=== PATIENT | female | born 1930 | race Caucasian/White ===

== ENCOUNTER 2016-08-24 08:06 | Observation (INO) ==
--- NOTE | 2016-08-24 08:49 | Emergency Department Note ---
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 Discovered after workup for multiple falls, gait instability, personality change, lack of insight. Power of box machine operator had accompanied her last night, had arranged for extensive home care 's after visit with case management. Patient returns, 3 additional falls overnight. No injury but unable to ambulate safely. Continued confusion, unable to complete simple tasks including ADLs. Accompanied by grandson who stayed with her all night. Daughter RN, apparently now involved. Referral to [facility] pending. - Related Data Home Medications Medication Instructions Recorded Confirmed Levothyroxine [Synthroid] 50 mcg PO DAILY 06/17/15 08/24/16 Omeprazole [PriLOSEC] 20 mg PO DAILY 06/17/15 08/24/16 Allergies Allergy/AdvReac Type Severity Reaction Status Date / Time No Known Drug Allergies Allergy Verified 08/24/16 08:12 Review of Systems All systems ED: reviewed and negative except as stated. Constitutional: Reports: weakness. Denies: fever, chills Cardiovascular: Denies: dyspnea on exertion, syncope Respiratory: Denies: cough, dyspnea Neurological: Reports: weakness, abnormal gait. Denies: headache Past Medical History - Past Medical History Attestation: Yes: The following information was validated with the patient. Medical history: Reports: cancer (new primary brain tumor identified August 2016), GERD, thyroid disease, other (upper GI bleed in the past) Surgical history ED: Reports: appendectomy, hysterectomy, knee replacement Family history: Reports: non-contributory - Social History smoking status: Never smoker Physical Exam - General Limitations: no limitations General appearance: alert, other (confabulating, jorge poor insight) - Head Head exam: atraumatic - Eye Eye exam: Present: normal appearance - ENT ENT exam: normal exam - Neck Neck exam: Present: normal inspection. Absent: lymphadenopathy - Chest Chest inspection: Present: normal inspection - Respiratory Respiratory exam: Present: normal lung sounds bilaterally. Absent: respiratory distress - Cardiovascular Cardiovascular exam: Present: regular rate, normal rhythm - Abdominal Exam Abdominal exam: Present: soft. Absent: tenderness - Extremities Exam Extremities exam: Present: normal inspection - Back Exam Back exam: Present: normal inspection - Neurological Exam Neurological exam: Present: alert, other (oriented to person and place; details and history lacking) - Psychiatric Psychiatric exam: Present: normal affect - Skin Skin exam: Present: warm, intact Course - Reevaluation(s) Reevaluation #1: laboratory not repeated; discussed with hospitalist,willing for admission Time: 08:54 Vital Signs Temperature 99.5 F 08/24/16 08:07 Pulse Rate 64 08/24/16 08:07 Respiratory Rate 16 08/24/16 08:07 Blood Pressure 132/73 08/24/16 08:07 Pulse Oximetry (%) 97 08/24/16 08:07 Temperature 99.5 F 08/24/16 08:07 Pulse Rate 64 08/24/16 08:07 Respiratory Rate 16 08/24/16 08:07 Blood Pressure 132/73 08/24/16 08:07 Pulse Oximetry (%) 97 08/24/16 08:07 Disposition Clinical Impression: Brain tumor, Gait instability Altered mental status Qualifiers: Altered mental status type: disorientation Qualified Code(s): R41.0 - Disorientation, unspecified Disposition: Xfer As Inpt ([facility]) Condition: Fair Referrals: Edgar Muñiz MD [Primary Care Provider] -
--- NOTE | 2016-08-24 10:21 | Internal Med History&Physical ---
Medical - H&P: [facility] Patient information: Note initiated : 08/24/16 at 10:16 am Service Date, if different from initiated Date: [] Patient: Danita Sosa 85 y/o F admitted on 08/24/16 for Increased Weakness, Lt Droop. Chief Complaint: [] History of present illness: Ms. Sosa is a 85 year old female with minimal past medical history, who was seen in our emergency room yesterday after being brought in for unsteady gait and multiple falls. She was discovered to have brain edema as well as a brain tumor. She was discharged to the care for family, with advice to follow up with oncology. she apparently had 3 more falls overnight, and is having difficulty following commands. She is now being admitted for failure to thrive, and unsafe home environment . The patient reports that she has rather suddenly just gotten weak. She says her legs feel weak when she tries to walk. She thinks she may have had a fever. She is having intermittent pain behind her right eye. her grandson is with her this morning,and the she is intermittently confused, and cannot seem to follow commands well, especially regarding her right and left side. he patient admits that she cannot see as well to the leftas before. She otherwise denies dizziness or lightheadedness, ear pain or discharge, sore throat or cough. She denies chest pain or palpitations, shortness of breath or wheezing, abdominal pain, nausea or vomiting or diarrhea or constipation. She does have chronic urinary incontinence. past medical history: we have limited data in the computer. hypothyroidism History of GERD and Schatzki's ring. Medications; levothyroxin 50 g daily Prilosec 20 mg daily Allergies: No known drug allergies Family history: the patient's mother had breast cancer and hypertension. Her father had esophageal cancer. One daughter has MS. Another daughter after a stroke. Social history: The patient lives alone, but has various friends and family members check on her. She does not use tobacco, alcohol, drugs. Her grandson says there are no family members that are available to sit with her during the day, but they try to check on her frequently. Medical - H&P: Meds Home Medications Medication Instructions Recorded Confirmed Type Levothyroxine [Synthroid] 50 mcg PO DAILY 06/17/15 08/24/16 History Omeprazole [PriLOSEC] 20 mg PO DAILY 06/17/15 08/24/16 History Allergies Allergy/AdvReac Type Severity Reaction Status Date / Time No Known Drug Allergies Allergy Verified 08/24/16 08:12 Medical - H&P: Exam - Constitutional Vitals: Temp Pulse Resp BP Pulse Ox 99.5 F 68 18 134/74 98 08/24/16 08:07 08/24/16 09:38 08/24/16 09:38 08/24/16 09:38 08/24/16 09:38 abs done yesterday: CBC was normalPro time was normalat 14. Chemistry panel was normal other than an ionized calcium that was low at 1.[address] shows a poorly defined tumor in the right temporal lobe with associated vasogenic edema, likely a primary brain cancer. There is also right to left midline shift at the level of the third ventricle and thalamus. There is a small subacute hematoma along the anterior border of the tumor. Exam: he patient is an elderly female, lying in bed, and seems to gaze only to the right. Head: Normocephalic, atraumatic. Eyes: PERRLA, anicteric. EOMs appear intact, however she needs a lot of encouragement to look to the left Left visual em are impaired, and she is not able to count fingers on the left. Ears: TMs and canals are clear. Pharynx: Mucosa is a bit dry. She has full upper and lower plates. Neck: appears supple, without obvious lymphadenopathy, JVD, thyromegaly, bruits. Cardiac exam: Shows regular rate and rhythm, normal S1 and S2, no murmurs, rubs , gallops. Lungs: Are clear to auscultation, without rales, rhonchi, wheezes. Abdomen: Soft and nontender with no obvious masses. Bowel sounds are active. Extremities: Show no cyanosis, clubbing, edema. Neurologic:The patient appears fairly alert and oriented, but is forgetful about recent events. Cranial nerve exam shows a mild left lower facial droop. she also appears to have a left-sided visual field deficit. Motor exam: She is somewhat weaker in the left upper extremity than the right. It is difficult to test the lower extremity strength, as she reports she has bilateral knee pain and does not wish to cooperate. Cerebellar exam: Patient has left-sided pronator drift. She is unable to fully cooperate with [id number] exam on the left although this may be due to weakness and left-sided neglect. Skin exam: Does not show any obvious rashes or other worrisome skin lesions. Medical - H&P: Reslt - Labs CBC & Chem 7: 08/24/16 12:09 Medical - H&P: A/P (1) Visual field constriction of left eye Current visit: Yes Status: Acute (2) Cerebral edema Current visit: Yes Status: Acute (3) Bladder incontinence Current visit: Yes Status: Acute (4) Hypothyroid Current visit: Yes Status: Acute (5) Altered mental status Current visit: Yes Status: Acute (6) Brain tumor Current visit: Yes Status: Acute (7) Gait instability Current visit: Yes Status: Acute 1. Neurologic. this patient presents with fairly rapidly progressing neurologic changes over the last 48 hours. These appear associated with a brain tumor with associated vasogenic edema. She is at high risk for recurrent falls, and will be admitted for observation. -I will contact oncology to see if we need to pursue further workup. -Start her on IV Decadron. -she will need a social work consult to help sort out what her discharge plan will be. #2. CODE STATUS:I reviewed with the patient as well as with her grandson, and she is quite firm that she wants to have a DNR CODE STATUS. Apparently a friend of hers, possibly name Ricardo, has her power of trademark attorney. #3. DVT prophylaxis: #4. Hypothyroidism. Continue levothyroxine. #5. Chronic bladder incontinence Check urinalysis. #6. History of GERD and Schatzki's ring. Continue Prilosec. approximately 60 minutes has been on spent today, reviewing her case with the ER Mari, interviewing and examining her, reviewing plan of care with she and her grandson, and writing orders. Addendum: I was able to speak with Dr. España of oncology. he suggested we get a brain MRI with contrast to further evaluate the patient's brain mass. He said if there was obvious stroke, he would lean towards treating her as a stroke patient. He said once the mass is better characterized, he could probably give us a better sense of if that was treatable or not.
[2016-08-24] MEDS ORDERED: ONDANSETRON 4 MG/2 ML VIAL IV PRN (11:33)
[2016-08-24] MEDS ORDERED: MAGNESIUM HYDROXIDE 30 ML ORAL.SUSP PO PRN (11:33)
[2016-08-24] MEDS ORDERED: DEXAMETHASONE 10 MG/ML VIAL IV ONE (11:33)
[2016-08-24] MEDS ORDERED: DOCUSATE SODIUM 100 MG CAPSULE PO PRN (11:33)
[2016-08-24] MEDS: 0.9 % SODIUM CHLORIDE 10 ML SYRINGE IV SCH ×2 (13:30→20:07)
[2016-08-24 16:15] LABS: ALT/SGPT 17 U/l (0-40); Albumin 3.9 gm/dL (3.2-5.2); Albumin/Globulin Ratio 1.2 (1.0-2.3); Alkaline Phosphatase 90 U/L (39-117); Bilirubin,Direct < 0.2 mg/dL (0.0-0.3); Blood Urea Nitrogen 18 mg/dl (8-23); Gamma Glutamyl Transpeptidase 19 U/L (5-36); Magnesium 2.1 mg/dL (1.6-2.5); Phosphorous 2.7 mg/dL (2.7-4.5); Uric Acid 6.5 mg/dL (2.5-8.0)
[2016-08-24] MEDS: HEPARIN 5,000 UNIT/ML VIAL SQ SCH (20:06)
[2016-08-25 05:25] LABS: Mean Corpuscular HGB Conc 31.7 g/dL (31.0-36.0); Mean Corpuscular Hemoglobin 28.5 pg (26.0-34.0); Platelet Count 290 K/mcL (140-440); RBC 5.19 M/mcL (4.00-5.20); Red Cell Distribution Width 15.6 % (11.5-14.5)
[2016-08-25] MEDS: 0.9 % SODIUM CHLORIDE 10 ML SYRINGE IV SCH ×3 (07:20→21:03)
[2016-08-25 07:46] LABS: Band Neutrophils % 4 % (0-10); Lymphocytes % 14 % (15-49); Monocytes % (Manual) 3 % (1-9); Platelet Estimate NORMAL (NORMAL); RBC Morphology NORMAL (NORMAL); Segmented Neutrophils % 79 % (38-78)
[2016-08-25] MEDS: LEVOTHYROXINE 50 MCG TABLET PO SCH (08:19)
[2016-08-25] MEDS: PANTOPRAZOLE 40 MG TABLET PO SCH (08:19)
[2016-08-25] MEDS: ACETAMINOPHEN 325 MG TABLET PO PRN ×2 (08:22→13:27)
[2016-08-25] MEDS: HEPARIN 5,000 UNIT/ML VIAL SQ SCH ×2 (10:25→21:02)
--- NOTE | 2016-08-25 11:00 | Magnetic Resonance Report ---
CLINICAL INFORMATION: COMPARISON: None. TECHNIQUE: Sagittal T1 FLAIR, axial diffusion ADC, T1 FLAIR, T2 FLAIR propeller, T2 propeller gradient, and many susceptibility T1 post Magnevist and coronal T1 FLAIR post Magnevist images were acquired. FINDINGS: There is a large (6.1 x 2.8 x 2.6 cm) ring-enhancing mass dominating the anterior/mid left temporal lobe. It consists of a thick irregular enhancing rim with a large region of central necrosis. There are multiple smaller ring-enhancing satellite lesions inferiorly: 2.7 cm medially and 1.4 cm and 2 cm more laterally. There is also a 5 mm enhancing nodule in the anterior right temporal cortex. The lesions have elicited a very large amount of vasogenic edema throughout the right temporal lobe with extension to the right frontal and parietal lobes. Marked mass effect is noted featuring near complete effacement of the right lateral ventricle, right to left shift, subfalcine and uncal herniation. IMPRESSION: Large (6.1 cm) ring-enhancing mass with multiple smaller satellite lesions inferiorly within the right temporal lobe. There is a large amount of associated vasogenic edema resulting in marked mass effect featuring right to left shift subfalcine and uncal herniation. 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 Interpreted and Authenticated by: James Baires 08/25/16
--- NOTE | 2016-08-25 12:01 | Internal Med Progress Note ---
Medical - PN: Subj Patient information: Note initiated : 08/25/16 at 12:00 pm Service Date, if different from initiated Date: [] Patient: Danita Sosa 85 y/o F admitted on 08/24/16 for Increased Weakness, Lt Droop. Chief Complaint: [] Interval history: August 24, 2016:History of present illness: Ms. Sosa is a 85 year old female with minimal past medical history, who was seen in our emergency room yesterday after being brought in for unsteady gait and multiple falls. She was discovered to have brain edema as well as a brain tumor. She was discharged to the care for family, with advice to follow up with oncology. she apparently had 3 more falls overnight, and is having difficulty following commands. She is now being admitted for failure to thrive, and unsafe home environment . The patient reports that she has rather suddenly just gotten weak. She says her legs feel weak when she tries to walk. She thinks she may have had a fever. She is having intermittent pain behind her right eye. her grandson is with her this morning,and the she is intermittently confused, and cannot seem to follow commands well, especially regarding her right and left side. he patient admits that she cannot see as well to the leftas before. She otherwise denies dizziness or lightheadedness, ear pain or discharge, sore throat or cough. She denies chest pain or palpitations, shortness of breath or wheezing, abdominal pain, nausea or vomiting or diarrhea or constipation. She does have chronic urinary incontinence. August 25, 2016: the patient received IV Decadron last night. Today she is feeling quite a bit improved, and is actually up in the hallway walking with a walker. She notes less left- sided weakness, and says she ate a good breakfast. She is in good spirits today. Otherwise, she denies fever or chills. Her right eye pain is less today. She denies chest pain or shortness of breath, GI or symptoms. - Constitutional Vitals: Vital Signs Temp Pulse Resp BP Pulse Ox 97.1 F L 47 L 20 147/70 97 08/25/16 07:43 08/25/16 07:43 08/25/16 07:43 08/25/16 07:43 08/25/16 07:43 Period Temp Pulse Resp BP Sys/Elise Pulse Ox Last 24 Hr 96.5 F-97.8 F 47-76 20-22 120-147/70-81 94-97 Intake and Output 08/24/16 08/25/16 08/25/16 21:59 05:59 13:59 Intake Total 120 / 120 200 / 200 Output Total 2 / 2 101 / 101 Balance 118 / 118 -101 / -101 200 / 200 Weight 180 lb Intake & Output: Intake & Output 08/24/16 08/25/16 08/25/16 21:59 05:59 13:59 Intake Total 120 / 120 200 / 200 Output Total 2 / 2 101 / 101 Balance 118 / 118 -101 / -101 200 / 200 Weight 180 lb Intake: Oral 120 / 120 200 / 200 Output: Void Amount 100 / 100 # of times incontinent of urine Other: Meal Dinner Breakfast Percent of Meal Consumed 100% 100% Feeding Ability Independent Independent # Voids 1 Exam: on exam, she is much more lively today. She seems to have much less in the way of left-sided neglect. Neck is supple without obvious lymphadenopathy or JVD. Cardiac exam shows regular rate and rhythm. Lungs clear to auscultation. Abdomen is soft and nontender. Extremities show no edema. Neurologic: The patient is alert and oriented. She is in good spirits. she walks fairly well with physical therapy and a walker in the hallway. On cerebellar exam, there is no significant pronator drift today, and finger-to- finger exam on the left is much improved. Medical - PN: Obj Da - Labs CBC & Chem 7: 08/25/16 03:55 08/24/16 12:09 Labs: Abnormal Lab Results 08/25/16 03:55 RDW 15.6 H Seg Neutrophils % 79 H Lymphocytes % 14 L MRI of the brain:There is a large 6 cm ring-enhancing mass with multiple smaller satellite lesions inferiorly within the right temporal lobe. 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 Meds: Medications Acetaminophen (Tylenol) 650 mg PO Q6HP PRN PRN Reason: PAIN/FEVER > 101 Docusate Sodium (Colace) 100 mg PO BID PRN PRN Reason: Constipation Heparin Sodium (Porcine) (Heparin) 5,000 unit SQ Q12 [facility] Last Admin: 08/25/16 10:25 Dose: 5,000 unit Levothyroxine Sodium (Synthroid) 50 mcg PO ACB [facility] Last Admin: 08/25/16 08:19 Dose: 50 mcg Magnesium Hydroxide (Milk Of Magnesia) 30 ml PO DAILYP PRN PRN Reason: Constipation Ondansetron HCl (Zofran) 4 mg IV Q6HP PRN PRN Reason: Nausea And Vomiting Pantoprazole Sodium (Protonix) 40 mg PO QAMAC [facility] Last Admin: 08/25/16 08:19 Dose: 40 mg Sodium Chloride (Saline Flush) 10 ml IV Q8 [facility] Last Admin: 08/25/16 07:20 Dose: 10 ml Medical - PN: A/P - Time Spent With Patient Total time spent is greater than 50% in coordination of care (as documented) at patient's floor/unit and/or counseling patient: (1) Visual field constriction of left eye Status: Acute Current Visit: Yes (2) Cerebral edema Status: Acute Current Visit: Yes (3) Bladder incontinence Status: Acute Current Visit: Yes (4) Hypothyroid Status: Acute Current Visit: Yes (5) Altered mental status Status: Acute Current Visit: Yes (6) Brain tumor Status: Acute Current Visit: Yes (7) Gait instability Status: Acute Current Visit: Yes - Narrative A/P Narrative: 1. Neurologic. -he patient's symptoms are much improved after IV steroids. Unfortunately her MRI indicates a malignant process. i reviewed her case, by telephone, with both Dr. Evans, of neurosurgery, and also Dr. España, of medical oncology. they both say that there is some palliative therapy that could be offered, if the patient is interested. Her tumor is not likely to be curable, but they could possibly remove most of it, and then palliate her further with either radiation or chemotherapy. -this was discussed with the patient, and she would like to be referred for an appointment. -Decadron, 2 mg by mouth twice a day,was started at the suggestion of the neurosurgeon. -social work is arranging for possible transfer [facility], as the patient remains a high fall risk. #2. CODE STATUS:I reviewed with the patient as well as with her grandson, and she is quite firm that she wants to have a DNR CODE STATUS. Apparently a friend of hers, possibly name Ricardo, has her power of senior physical therapist. #3. DVT prophylaxis: on hold for now. #4. Hypothyroidism. Continue levothyroxine. #5. Chronic bladder incontinence Check urinalysis. #6. History of GERD and Schatzki's ring. Continue Prilosec. this visit took approximately 35 minutes today, to review her test results, both with she and her grandson, and then again with the patient alone later, as well as reviewing her case with the 2 different specialist. Medical - PN: Qual - VTE Deep Vein Thrombosis/Pulmonary Embolism Present on Admission: No
[2016-08-25] MEDS: DEXAMETHASONE 4 MG TABLET PO SCH ×2 (14:02→21:02)
[2016-08-26] MEDS: 0.9 % SODIUM CHLORIDE 10 ML SYRINGE IV SCH (06:00)
[2016-08-26] MEDS: PANTOPRAZOLE 40 MG TABLET PO SCH (07:32)
[2016-08-26] MEDS: LEVOTHYROXINE 50 MCG TABLET PO SCH (07:32)
[2016-08-26] MEDS: HEPARIN 5,000 UNIT/ML VIAL SQ SCH (09:16)
[2016-08-26] MEDS: DEXAMETHASONE 4 MG TABLET PO SCH (09:43)
--- NOTE | 2016-08-26 12:17 | Discharge Summary ---
Medical - DS: Prov Patient information: Note initiated : 08/26/16 at 12:14 pm Service Date, if different from initiated Date: [] Patient: Danita Sosa 85 y/o F admitted on 08/24/16 for Increased Weakness, Lt Droop. Chief Complaint: [] Date of admission: 08/24/16 10:15 Discharge date: 08/26/16 Primary care physician: [] Edgar Muñiz M.D., phone [phone] Admitting clinician: Mireille Washington Attending physician on discharge: Mireille Washington Medical - DS: Meds - Discharge Medications Active and Home Medications: Active Medications Acetaminophen (Tylenol) 650 mg PO Q6HP PRN PRN Reason: PAIN/FEVER > 101 Last Admin: 08/25/16 13:27 Dose: 650 mg Dexamethasone (Decadron) 2 mg PO BID [facility] Last Admin: 08/26/16 09:43 Dose: 2 mg Docusate Sodium (Colace) 100 mg PO BID PRN PRN Reason: Constipation Heparin Sodium (Porcine) (Heparin) 5,000 unit SQ Q12 [facility] Last Admin: 08/26/16 09:16 Dose: 5,000 unit Levothyroxine Sodium (Synthroid) 50 mcg PO ACB [facility] Last Admin: 08/26/16 07:32 Dose: 50 mcg Magnesium Hydroxide (Milk Of Magnesia) 30 ml PO DAILYP PRN PRN Reason: Constipation Ondansetron HCl (Zofran) 4 mg IV Q6HP PRN PRN Reason: Nausea And Vomiting Pantoprazole Sodium (Protonix) 40 mg PO QAMAC [facility] Last Admin: 08/26/16 07:32 Dose: 40 mg Sodium Chloride (Saline Flush) 10 ml IV Q8 [facility] Last Admin: 08/26/16 06:00 Dose: 10 ml Medical - DS: Hosp Hospital course: Ms. Sosa is a 85 year old female History of present illness: Ms. Sosa is a 85 year old female with minimal past medical history, who was seen in our emergency room yesterday after being brought in for unsteady gait and multiple falls. She was discovered to have brain edema as well as a brain tumor. She was discharged to the care for family, with advice to follow up with oncology. she apparently had 3 more falls overnight, and is having difficulty following commands. She is now being admitted for failure to thrive, and unsafe home environment . The patient reports that she has rather suddenly just gotten weak. She says her legs feel weak when she tries to walk. She thinks she may have had a fever. She is having intermittent pain behind her right eye. her grandson is with her this morning,and the she is intermittently confused, and cannot seem to follow commands well, especially regarding her right and left side. he patient admits that she cannot see as well to the leftas before. She otherwise denies dizziness or lightheadedness, ear pain or discharge, sore throat or cough. She denies chest pain or palpitations, shortness of breath or wheezing, abdominal pain, nausea or vomiting or diarrhea or constipation. She does have chronic urinary incontinence. August 25, 2016: the patient received IV Decadron last night. Today she is feeling quite a bit improved, and is actually up in the hallway walking with a walker. She notes less left- sided weakness, and says she ate a good breakfast. She is in good spirits today. Otherwise, she denies fever or chills. Her right eye pain is less today. She denies chest pain or shortness of breath, GI or symptoms. 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 Her case was reviewed with Dr. Evans of neurosurgery, as well as Dr. España of oncology. they say that she may well have viable treatment options, so she will meet with Dr. Evans tomorrow, and hopefully will meet with Dr. España soon. She is very functional and independent generally. She is interested in pursuing, or at least hearing about, treatment options. Since receiving the Decadron, she has perked up remarkably. She is now sitting up in a chair and talking and eating. She has been walking with a walker, and is doing quite well. She is no longer exhibiting symptoms of stroke. She denies fever or chills, chest pain or shortness of breath, GI or symptoms. past medical history: we have limited data in the computer. hypothyroidism History of GERD and Schatzki's ring. Medications; levothyroxin 50 g daily Prilosec 20 mg daily Allergies: No known drug allergies Family history: the patient's mother had breast cancer and hypertension. Her father had esophageal cancer. One daughter has MS. Another daughter after a stroke. Social history: The patient lives alone, but has various friends and family members check on her. She does not use tobacco, alcohol, drugs. Her grandson says there are no family members that are available to sit with her during the day, but they try to check on her frequently. plan: 1. Neurologic. -he patient's symptoms are much improved after IV And oral steroids. Unfortunately her MRI indicates a malignant process. Her tumor is not likely to be curable, but they could possibly remove most of it , and then palliate her further with either radiation or chemotherapy. -this was discussed with the patient, and she would like to be referred for an appointment. she will see Dr. Evans on Tuesday, tomorrow, at 11 AM. -Decadron, 2 mg by mouth twice a day,was started at the suggestion of the neurosurgeon. -social work has arranged for her to transfer to [facility], as the patient remains a high fall risk, and should have supervision, at least for now..she does have family in the area, including a grandson who checks on her often, but there is no one that can be with her 24 hours a day at this time. #2. CODE STATUS:I reviewed with the patient as well as with her grandson, and she is quite firm that she wants to have a DNR CODE STATUS. Apparently a friend of hers, possibly name Ricardo, has her power of die operator. #3. DVT prophylaxis: on hold for now. she has been fairly physically active, and should continue with physical therapy. #4. Hypothyroidism. Continue levothyroxine. #5. Chronic bladder incontinence Check urinalysis. #6. History of GERD and Schatzki's ring. Continue Prilosec. Medical - H&P: Meds - Time Spent with Patient Total time spent providing and/or coordinating discharge services: Greater than 30 minutes Medical - DS: Exam - Constitutional Vitals: Vital Signs Temp Pulse Resp BP Pulse Ox 08/26/16 07:48 98.8 F 52 L 16 150/69 96 08/26/16 04:00 97.7 F 63 16 125/72 94 08/26/16 00:00 97.6 F 53 L 16 131/67 96 08/25/16 20:00 97.7 F 65 16 109/64 95 08/25/16 16:00 97.4 F L 55 L 20 105/66 96 Intake and Output 08/25/16 08/26/16 08/26/16 21:59 05:59 13:59 Intake Total 200 / 200 200 / 200 Output Total / Balance 200 / 200 199 / 199 Intake: Oral 200 / 200 200 / 200 Output: # of times incontinent of urine Other: Meal Lunch Percent of Meal Consumed 100% # Voids 1 1 # Bowel Movements 1 Weight 180 lb Additional comments: on exam, she is much more lively today. She seems to have much less in the way of left-sided neglect. Neck is supple without obvious lymphadenopathy or JVD. Cardiac exam shows regular rate and rhythm. Lungs clear to auscultation. Abdomen is soft and nontender. Extremities show no edema. Neurologic: The patient is alert and oriented. She is in good spirits. she is very talkative today,and was pleased to hear that her condition could possibly be treated, although not cured. Medical - DS: Data Labs on day of discharge: CBC from August 25 shows white blood cell count of 9000, hemoglobin 14, hematocrit 46, platelets 290,000, RDW 15 Chemistry panel was essentially normal with normal electrolytes, GFR of 46, normal calcium and uric acid and magnesium, LFTs MRI of the brain:There is a large 6 cm ring-enhancing mass with multiple smaller satellite lesions inferiorly within the right temporal lobe. 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 Head CT from August 23, 2016: Showed a poorly defined tumor in the right temporal lobe with associated vasogenic edema likely a primary brain cancer. There is also right to left midline shift at the level of the third ventricle and thalamus. There is a small subacute hematoma along the anterior border of the tumor. Medical - DS: A/P - Patient/Caregiver Discharge Instructions Activity: ambulate only with your walker, as per physical therapy, increase activity as tolerated Diet: Regular Diet Additional Instructions: Physical therapy, occupational therapy, speech therapy, all as needed. See Dr. Evans of neurosurgery, tomorrow, as scheduled. Be sure to make a follow-up appointment with Dr. España, of oncology Take Decadron twice a day as prescribed. - Problem Maintenance (1) Visual field constriction of left eye Status: Acute (2) Cerebral edema Status: Acute (3) Bladder incontinence Status: Chronic Qualifiers: Urinary Incontinence type: stress incontinence Qualified Code(s): N39.3 - Stress incontinence (female) (male) (4) Hypothyroid Status: Chronic (5) Altered mental status Status: Resolved Qualifiers: Altered mental status type: disorientation Qualified Code(s): R41.0 - Disorientation, unspecified (6) Brain tumor Status: Acute (7) Gait instability Status: Acute - Follow up Plan Follow up with: Giles Evans MD [Physician] - 08/27/16 11:30 am Edgar Muñiz MD [Primary Care Provider] - Davey Bruce MD [Physician] - 09/02/16 11:00 am Disposition: Xfer SNF Prognosis: Fair Rehab Potential: Fair Overall status at discharge: patient is progressing back to baseline Medical - DS: Qual - VTE Deep Vein Thrombosis/Pulmonary Embolism Present on Admission: No
== END 2016-08-26 13:40 ==
LOC: MEDSUR 08:06 → ED 08:06 → MEDSUR 10:05
PROVIDERS: ADMIT Internal Medicine; ATTEND Internal Medicine